=== PATIENT | male | born 1970 | race Caucasian/White ===

== ENCOUNTER 2018-04-19 03:08 | Emergency (ER) | payer OTHER ==
[~2018-04-19] VITALS: Ht 180.3 cm; Wt 104.3 kg
[2018-04-19 03:10] VITALS: BP_SYST 155
[2018-04-19 03:25] VITALS: BP_SYST 140
== END 2018-04-19 03:20 ==
LOC: SED 03:08
DX: Z02.83 Encounter for blood-alcohol and blood-drug test (principal)
CPT/HCPCS: 99283